=== PATIENT | male | born 1995 | race Caucasian/White ===

== ENCOUNTER 2019-05-20 02:06 | Emergency (ER) | payer SELFPAY ==
[~2019-05-20] VITALS: Ht 190.5 cm; Wt 93.0 kg
--- NOTE | 2019-05-20 02:08 | NUR ---
ED Nurse Note: Patient arrived via police custody for medical evaluation of pain on left upper and lower extremities and left side.
--- NOTE | 2019-05-20 02:29 | Emergency Room Report ---
History of Present Illness General Chief Complaint: Medical Clearance Source: Patient Present Illness HPI Disclaimer: Please note that this report is being documented using [employer] technology. This can lead to erroneous entry secondary to incorrect interpretation by the dictating instrument. HPI: 23-year-old Olaf Weaver presents for medical clearance prior to booking. He arrives in handcuffs escorted by police. He was brought in after he was combative with police requiring restraint. He is complaining of pain in the left ankle, left wrist and over the left side of the chest. Denies shortness of breath, headache, vision changes, neck or back pain. States he takes no medication. He is now stating that he has had wrist pain prior to his evaluation today and that that has not changed. He does state that the ankle pain is new. Unclear whether or not drugs or alcohol were involved this evening. Patient is refusing to give any history. PMH: Unknown PSH: Unknown Allergies: Unknown Social Hx: Unknown Allergies: Coded Allergies: No Known Allergies (Unverified , 05/20/19) Nursing Documentation-PMH Past Medical History: No Stated History Review of Systems All Other Systems: negative except mentioned in HPI Physical Exam Vital Signs Date Time Temp Pulse Resp B/P (MAP) Pulse Ox O2 Delivery O2 Flow Rate FiO2 05/20/19 02:08 98.8 109 20 99 Room Air General: Awake and alert, slightly agitated, restrained in handcuffs HEENT: Normocephalic, atraumatic. There are no scalp or face hematomas, lacerations or abrasions. No tenderness or soft tissue swelling over the facial bones. EOMI. No septal hematoma. Dentition is intact. No malocclusion Neck: Supple, trachea midline. Arrives without cervical collar Chest Wall: No deformity, no crepitus, tenderness palpation over the posterior aspect of the left ribs. CV: RRR. S1 and S2 normal. No murmur appreciated Resp: Normal work of breathing. No cough, wheezing or crackles appreciated Abd: Soft, nontender, nondistended Skin: Intact. No abrasions, laceration or rash over the exposed skin MSK: Normal tone and bulk. No obvious deformity. Moving all extremities. There is tenderness over the anterior portion of the ankle at the level of the talus. No tenderness over the posterior aspect of the medial or lateral malleolus. The left wrist has full range of motion on flexion extension, ulnar deviation, radial deviation pronation and supination. No edema. There is no tenderness in the anatomic snuffbox. Able to flex and extend all digits. Neuro: Awake and alert. Combative and resistant with questioning and physical exam though moving all extremities Spine: There is no tenderness, step-off or deformity in the cervical, thoracic or lumbosacral spine. Medical Decision Making Diagnostic Impression: Primary Impression: Medical clearance for incarceration Additional Impression: Ankle pain, left ER Course 23-year-old Olaf Weaver presents in custody for medical clearance prior to booking. Will obtain an x-ray of the left ankle though otherwise there is no point tenderness, no limitation in range of motion or obvious deformity in the left wrist where he complained of pain and now states the pain is chronic. We will also obtain a rib series and PA chest x-ray to rule out rib fracture. Patient will be given Motrin. Otherwise appears well and in no acute distress aside from agitation and combativeness with police. Do not believe he requires other emergent imaging or labs at this time Chest X-Ray Diagnostic Results Chest X-Ray Diagnostic Results : # of Views/Limited/Complete: 2 View Indication: Chest Pain EP Interpretation: Yes Interpretation: no consolidation, no effusion, no pneumothorax, no acute cardiopulmonary disease, other - No obvious rib fractures Impression: No acute disease Electronically Signed by: Electronically signed by Dr. Nasir Crowell Other X-Ray Diagnostic Results Other X-Ray Diagnostic Results : X-Ray ordered: Left ankle # of Views/Limited Vs Complete: 3 View Indication: Pain EP Interpretation: Yes Interpretation: no dislocation, no soft tissue swelling, no fractures, nonspecific bowel gas, other - Possible osteophyte and lateral aspect. Impression: No acute disease Electronically Signed by: Electronically signed by Dr. Nasir Crowell Reevaluation Time: 03:15 Last Vital Signs Date Time Temp Pulse Resp B/P (MAP) Pulse Ox O2 Delivery O2 Flow Rate FiO2 05/20/19 02:08 98.8 109 20 99 Room Air Reevaluation Impression X-ray of the chest and ribs do not show any obvious rib fracture, no pneumothorax, no consolidation otherwise unremarkable. The left ankle x-ray shows a possible osteophyte or possible avulsion fracture however the patient has no tenderness in the area rather has pain over the anterior portion of the talus. He is ambulate in without difficulty. He remains combative and aggressive with staff and law enforcement. He refused Motrin in the emergency department but did request a prescription for Motrin on discharge. I advised him not to participate in sporting events until he is cleared to return to full activities by either training staff or other medical professional. I also recommended ice, elevation, Luis wrap and follow-up with either orthopedic surgery urgent care which was included in discharge paperwork or with PMD/ [facility]/ehr trainer. He stated that he does not see doctors and that he would handle it on his own. Information on follow-up was included in his discharge paperwork. He was released to police custody Disposition: D/C TO LAW ENFORCEMENT IN CUST Condition: Stable Scripts Ibuprofen* (MOTRIN*) 600 Mg Tablet 600 MG ORAL Q8H PRN for For Pain, #30 TAB 0 Refills Prov: Nasir Crowell MD 05/20/19 Nasir Crowell MD May 20, 2019 02:29
[2019-05-20] MEDS ORDERED: IBUPROFEN600 MG ORAL (03:21)
--- NOTE | 2019-05-20 03:21 | NUR ---
ED Nurse Note: Patient cleared for discharge, unwilling to verbalize understanding of discharge instructions. Patient departed in police custody with no s/s of acute distress or alternative complaints.
--- NOTE | 2019-05-20 10:52 | Diagnostic Imaging Report ---
Indication: Left sided rib pain. Trauma. Findings: 4 views of the left chest wall was obtained for evaluation of the ribs. There is no acute fracture identified. There is no soft tissue swelling demonstrated. The lung is essentially clear. There is no pneumothorax. The costophrenic angle is sharp. Other osseous structures visualized are unremarkable. Impression: Negative left unilateral rib series
--- NOTE | 2019-05-20 10:53 | Diagnostic Imaging Report ---
Indication: left ankle pain Comparison: None Findings: 3 views of the left ankle obtained. Soft tissues are unremarkable. There is a well-corticated ossicle in the lateral part of the ankle just below the lateral malleolus, which may be reflective of an old injury. No acute fracture, malalignment, periostitis, or osteochondral defects are identified. Impression: No acute findings. Some evidence for remote left ankle injury.
== END 2019-05-20 04:50 ==
LOC: EMR 02:24
DX: M25.572 Pain in left ankle and joints of left foot (principal); R07.9 Chest pain, unspecified; M25.532 Pain in left wrist
CPT/HCPCS: 99284